=== PATIENT | female | born 1925 | race Caucasian/White ===

== ENCOUNTER 2016-09-25 06:16 | Day surgery (SDC) | payer MEDICARE, BC ==
[~2016-09-25 06:16] MED LIST: Midazolam 1 MG/ML 2 ML SDV ONE; fentaNYL 100 MCG/2 ML SDV ONE
[2016-09-25] MEDS ORDERED: Sodium Chloride 0.9% 10 ML Syringe FLUSH PRN (06:33)
[2016-09-25] MEDS ORDERED: Dextrose 5%-0.45% NaCl 1,000 ML IV SCH (06:45)
[2016-09-25] MEDS ORDERED: fentaNYL 100 MCG/2 ML SDV IV ONE ×2 (07:02→15:46)
[2016-09-25] MEDS ORDERED: Midazolam 1 MG/ML 2 ML SDV IV ONE ×3 (07:04→15:46)
--- NOTE | 2016-09-25 09:34 | OR ---
DATE: 09/25/2016 PROCEDURE: Esophagogastroduodenoscopy and multiple pinch biopsies. INSTRUMENT USED: GIF-Q180 Olympus video panendoscope. PREMEDICATIONS: No oral topical anesthesia used. Fentanyl 50 mcg intravenous, Versed 1 mg intravenous. Nasal 2 L O2 cannula. The procedure was done under pulse oximetry, BP recording, and tracer clerk. INDICATION: The patient with progressive weight loss, unexplained, and not responsive to medical measures. Esophagogastroduodenoscopy is performed for detection of any active erosive lesions, malignancy also under consideration, H. pylori status to be determined, endoscopic hemostasis therapy if needed. DESCRIPTION OF PROCEDURE: The scope was passed with ease. Adequate visualization of the esophagus was made from proximal to distal areas. No upper esophageal lesions identified. No distal esophageal stricture. No uphill or downhill esophageal varices. No Greta-Frazier tear. Brillion columnar epithelium was noted at around 30 cm distal to the oral verge, 4 quadrant biopsies were taken from the area and sent for any histopathologic evidence of intestinal metaplasia. Grade D erosive changes were noted by Clarion criteria. Sliding hiatal hernia was noted. No esophageal polyp or tumor mass identified. No proximal gastric varices noted. Gastric fundus examination with retroflexion showed no malignant lesions. No gastric ulcer, malignant mass, or vascular ectasia identified. Considerable deformity of the post-bulbar area was noted, couple of diverticula were noted in the duodenum, one near the prominent ampulla of Vater, multiple pinch biopsies were obtained from the colon and sent for histopathology. Multiple duodenal ulcers were noted, photographs were taken of the ulcer as well as the diverticulum, multiple pinch biopsies were obtained from the ulcers noted in the second part of the duodenum and sent for histopathology. Visualized areas of the second part of the duodenum was unremarkable. Multiple pinch biopsies were taken from the gastric antrum and proximal body and sent for PyloriTek test for H. pylori and histopathology. No bleeding was noted from any of the visualized areas at the completion of examination. IMPRESSION: 1. Columnar lined distal esophagus. 2. Sliding hiatal hernia. 3. Grade D gastroesophageal reflux disease. 4. Duodenal ulcers. 5. Duodenal diverticula. The patient tolerated the procedure well. [facility] /[id number]
[2016-09-25 09:47] VITALS: BP 101/57
== END 2016-09-25 09:37 | disposition home or self-care (01) ==
LOC: DL.ENDO 06:16
PROVIDERS: ATTEND Internal Medicine Gastroenterology
DX: K29.80 Duodenitis without bleeding (principal); B33.20 Viral carditis, unspecified; I10 Essential (primary) hypertension; E78.5 Hyperlipidemia, unspecified; F41.9 Anxiety disorder, unspecified; K57.30 Diverticulosis of large intestine without perforation or abscess without bleeding; Z86.010 Personal history of colon polyps
CPT/HCPCS: 43239; 87077; J2250; J3010; J7042; 88305

== ENCOUNTER 2017-08-26 14:26 | Inpatient (IN) | payer MEDICARE, BC ==
--- NOTE | 2017-08-26 17:22 | EDM.PDOC ---
ED HPI GENERAL MEDICAL PROBLEM - General Chief Complaint: Respiratory Problem Stated Complaint: SENT BY DR ARMENDARIZ Time Seen by Provider: 08/26/17 16:45 Source of Information: Reports: Patient, RN History Limitations: Reports: No Limitations - History of Present Illness INITIAL COMMENTS - FREE TEXT/NARRATIVE: Karen is an 89yo F who presents today due to a cough. She reports that she has been "sick with a bad cold" for the last couple weeks. The staff at the long-term relate that she has been on antibiotics for the last two days and seems to have gotten worse. Nursing staff here relate that the patients oxygen level was noted to be 86% in the waiting room and therefore was placed on oxygen. Patient denies shortness of breath, fever, chest pain, or cough. Patient relates that she normally does not normally wear oxygen at home. Onset: Gradual (For the last couple weeks ) Location: Reports: Chest (Cough ) Improves with: Reports: None Worsens with: Reports: None Associated Symptoms: Reports: No Other Symptoms - Related Data Allergies Allergy/AdvReac Type Severity Reaction Status Date / Time No Known Allergies Allergy Verified 08/26/17 16:52 Home Meds: Home Meds Acetaminophen [Tylenol Extra Strength] 500 mg PO Q6HR PRN 02/23/15 [History] Multivitamin [Multivitamins] 1 tab PO DAILY 02/23/15 [History] Potassium Chloride [Klor-Con 10] 10 meq PO DAILY 02/23/15 [History] Terazosin [Hytrin] 5 mg PO DAILY 02/23/15 [History] Azithromycin [IJD: Azithromycin] 250 mg PO DAILY 08/26/17 [History] Benzonatate [Tessalon Perle] 100 mg PO TID PRN 08/26/17 [History] Codeine/guaiFENesin [Robitussin AC] 5 ml PO Q4HR PRN 08/26/17 [History] Ferrous Fumarate 324 mg PO DAILY 08/26/17 [History] Folic Acid 1 mg PO DAILY 08/26/17 [History] Furosemide 20 mg PO DAILY 08/26/17 [History] Omeprazole 20 mg PO DAILY 08/26/17 [History] Past Medical History HEENT History: Reports: Impaired Vision Cardiovascular History: Reports: High Cholesterol, Hypertension Other Cardiovascular History: HYPERCHOLESTEROLEMIA; HYPERTRIGLYCERIDEMIA Respiratory History: Reports: None Other Respiratory History: UPPER RESPIRATORY INFECTION Gastrointestinal History: Reports: Diverticulosis Other Gastrointestinal History: HX OF COLON CANCER Genitourinary History: Reports: None 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 Musculoskeletal History: Reports: Arthritis, Back Pain, Chronic, Other (See Below) Other Musculoskeletal History: degenerative joint disease Neurological History: Reports: None Other Neuro History: DJD Psychiatric History: Reports: None Endocrine/Metabolic History: Reports: None Other Hematologic History: HYPOKALEMIA Immunologic History: Reports: None Oncologic (Cancer) History: Reports: Colon Dermatologic History: Reports: None - Infectious Disease History Infectious Disease History: Reports: Measles - Past Surgical History HEENT Surgical History: Reports: Cataract Surgery GI Surgical History: Reports: Cholecystectomy, Colonoscopy, Hernia Repair/Other Social & Family History - Tobacco Use Smoking Status *Q: Former Smoker Years of Tobacco use: 15 Used Tobacco, but Quit: Yes Month/Year Tobacco Last Used: unknown - Caffeine Use Caffeine Use: Reports: Coffee - Recreational Drug Use Recreational Drug Use: No ED ROS GENERAL - Review of Systems Review Of Systems: ROS reveals no pertinent complaints other than HPI. ED EXAM, GENERAL - Physical Exam Exam: See Below Exam Limited By: No Limitations General Appearance: Alert, WD/WN, No Apparent Distress Eye Exam: Bilateral Eye: EOMI, PERRL Ears: Normal External Exam, Normal Canal, Hearing Grossly Normal, Normal TMs Ear Exam: Bilateral Ear: Auricle Normal, Canal Normal, TM normal Nose: Normal Inspection, Normal Mucosa, No Blood Throat/Mouth: Normal Inspection, Normal Lips, Normal Teeth, Normal Gums, Normal Oropharynx, Normal Voice, No Airway Compromise Head: Atraumatic, Normocephalic Neck: Normal Inspection, Supple, Non-Tender, Full Range of Motion Respiratory/Chest: No Respiratory Distress, No Accessory Muscle Use, Chest Non- Tender, Crackles (Patient has coarse crackles throughout. Inspiratory and expiratory wheezes noted. ) Cardiovascular: Normal Peripheral Pulses, Regular Rate, Rhythm, No Edema, No Gallop, No JVD, No Murmur, No Rub GI/Abdominal: Normal Bowel Sounds, Soft, Non-Tender, No Organomegaly, No Distention, No Abnormal Bruit, No Mass (Female) Exam: Deferred Rectal (Female) Exam: Deferred Back Exam: Normal Inspection, Full Range of Motion, NT Extremities: Normal Inspection, Normal Range of Motion, Non-Tender, Normal Capillary Refill, No Pedal Edema Neurological: Alert, Oriented, CN II-XII Intact, Normal Cognition, Normal Gait, Normal Reflexes, No Motor/Sensory Deficits Psychiatric: Normal Affect, Normal Mood Skin Exam: Warm, Dry, Intact, Normal Color, No Rash Lymphatic: No Adenopathy Course - Vital Signs Last Recorded V/S: Last Vital Signs Temp 99.1 F 08/26/17 18:54 Pulse 75 08/26/17 18:54 Resp 32 H 08/26/17 18:54 BP 116/54 L 08/26/17 18:59 Pulse Ox 92 L 08/26/17 18:58 - Orders/Labs/Meds Orders: Active Orders 24 hr Category Date Time Status RT Aerosol Therapy [RC] ASDIRECTED Care 08/26/17 17:25 Active Chest 2V [CR] Urgent Exams 08/26/17 17:17 Taken Chest w Cont [CT] Urgent Exams 08/26/17 19:18 Ordered CULTURE BLOOD [BC] Stat Lab 08/26/17 17:28 Received CULTURE BLOOD [BC] Stat Lab 08/26/17 17:34 Received INFLUENZA A+B AG SCREEN [RM] Stat Lab 08/26/17 19:21 Received Blood Culture x2 Reflex Set [OM.PC] Stat Oth 08/26/17 17:17 Ordered Labs: Laboratory Tests 08/26/17 08/26/17 08/26/17 Range/Units 17:28 17:28 17:28 WBC 7.4 (5.0-10.0) 10^3/uL RBC 3.95 L (4.2-5.4) 10^6/uL Hgb 11.9 L (12.0-16.0) g/dL Hct 36.1 L (37.0-47.0) % MCV 91.4 (80-100) fL MCH 30.1 (27.0-34.0) pg MCHC 33.0 (33.0-35.0) g/dL Plt Count 273 (150-450) 10^3/uL Neut % (Auto) 74.0 (42.2-75.2) % Lymph % (Auto) 16.9 L (20.5-50.1) % [place] % (Auto) 8.5 H (2-8) % Eos % (Auto) 0.5 L (1.0-3.0) % Baso % (Auto) 0.1 (0.0-1.0) % Sodium 134 L (135-145) mmol/L Potassium 3.3 L (3.6-5.0) mmol/L Chloride 97 L (101-111) mmol/L Carbon Dioxide 26.0 (21.0-31.0) mmol/L Anion Gap 14.3 BUN 17 (7-18) mg/dL Creatinine 1.0 (0.6-1.3) mg/dL Est Cr Clr Drug Dosing 35.70 mL/min Estimated GFR (MDRD) 52 BUN/Creatinine Ratio 17.00 Glucose 92 (74-105) mg/dL Lactic Acid (0.5-2.2) mmol/L Calcium 8.7 (8.4-10.2) mg/dl Total Bilirubin 0.7 (0.2-1.0) mg/dL AST 23 (10-42) IU/L ALT 16 (10-60) IU/L Alkaline Phosphatase 91 (42-121) IU/L B-Natriuretic Peptide 120 H (0-100) pg/ml Total Protein 6.6 L (6.7-8.2) g/dl Albumin 3.4 (3.2-5.5) g/dl Globulin 3.2 Albumin/Globulin Ratio 1.06 Urine Color (YELLOW) Urine Appearance (CLEAR) Urine pH (5.0-9.0) Ur Specific [place] (1.005-1.030) Urine Protein (NEGATIVE) Urine Glucose (UA) (NEGATIVE) Urine Ketones (NEGATIVE) Urine Occult Blood (NEGATIVE) Urine Nitrite (NEGATIVE) Urine Bilirubin (NEGATIVE) Urine Urobilinogen (0.2-1.0) mg/dL Ur Leukocyte Esterase (NEGATIVE) Urine RBC /HPF Urine WBC (0-5/HPF) /HPF Ur Epithelial Cells /HPF Calcium Oxalate Crystal /HPF Amorphous Sediment (0/HPF) /HPF Urine Bacteria (0-FEW/HPF) /HPF Hyaline Casts /LPF Fine Granular Casts (0/LPF) /LPF Urine Mucus /LPF Urine Other 08/26/17 08/26/17 Range/Units 17:34 18:31 WBC (5.0-10.0) 10^3/uL RBC (4.2-5.4) 10^6/uL Hgb (12.0-16.0) g/dL Hct (37.0-47.0) % MCV (80-100) fL MCH (27.0-34.0) pg MCHC (33.0-35.0) g/dL Plt Count (150-450) 10^3/uL Neut % (Auto) (42.2-75.2) % Lymph % (Auto) (20.5-50.1) % [place] % (Auto) (2-8) % Eos % (Auto) (1.0-3.0) % Baso % (Auto) (0.0-1.0) % Sodium (135-145) mmol/L Potassium (3.6-5.0) mmol/L Chloride (101-111) mmol/L Carbon Dioxide (21.0-31.0) mmol/L Anion Gap BUN (7-18) mg/dL Creatinine (0.6-1.3) mg/dL Est Cr Clr Drug Dosing mL/min Estimated GFR (MDRD) BUN/Creatinine Ratio Glucose (74-105) mg/dL Lactic Acid 0.7 (0.5-2.2) mmol/L Calcium (8.4-10.2) mg/dl Total Bilirubin (0.2-1.0) mg/dL AST (10-42) IU/L ALT (10-60) IU/L Alkaline Phosphatase (42-121) IU/L B-Natriuretic Peptide (0-100) pg/ml Total Protein (6.7-8.2) g/dl Albumin (3.2-5.5) g/dl Globulin Albumin/Globulin Ratio Urine Color Yellow (YELLOW) Urine Appearance Cloudy (CLEAR) Urine pH 5.5 (5.0-9.0) Ur Specific [place] 1.015 (1.005-1.030) Urine Protein 30 H (NEGATIVE) Urine Glucose (UA) Negative (NEGATIVE) Urine Ketones 15 H (NEGATIVE) Urine Occult Blood Negative (NEGATIVE) Urine Nitrite Negative (NEGATIVE) Urine Bilirubin Small H (NEGATIVE) Urine Urobilinogen 0.2 (0.2-1.0) mg/dL Ur Leukocyte Esterase Negative (NEGATIVE) Urine RBC 0-5 /HPF Urine WBC 0-5 (0-5/HPF) /HPF Ur Epithelial Cells Rare /HPF Calcium Oxalate Crystal Many H /HPF Amorphous Sediment Rare (0/HPF) /HPF Urine Bacteria Few (0-FEW/HPF) /HPF Hyaline Casts Moderate H /LPF Fine Granular Casts Few H (0/LPF) /LPF Urine Mucus Rare /LPF Urine Other Meds: Medications Discontinued Medications Generic Name Dose Route Start Last Admin Trade Name Freq PRN Reason Stop Dose Admin Albuterol/Ipratropium 3 ml 08/26/17 17:25 08/26/17 17:42 Duoneb 3.0-0.5 Mg/3 Ml NEB 08/26/17 17:26 3 ml ONETIME ONE Administration Iopamidol 100 ml 08/26/17 19:18 Isovue-370 (76%) IVPUSH 08/26/17 19:19 ONETIME ONE Departure - Departure Time of Disposition: 18:39 Disposition: Admitted As Inpatient 68 Condition: Good Clinical Impression: Pneumonia - Discharge Information Care Plan Goals: Discussed case with Dr Monahan due to patient's low oxygen sats. Recommended CT study P/E study and will come in see patient in the ED.
[2017-08-26] MEDS ORDERED: Albuterol/Ipratropium 3.0-0.5 MG/3 ML Neb Soln NEB ONE (17:25)
[2017-08-26] MEDS ORDERED: Iopamidol 755 Mg/ML 100 ML Bottle IVPUSH ONE (19:18)
[2017-08-26] MEDS ORDERED: Ondansetron 4 MG/2 ML SDV IVPUSH PRN (19:29)
[2017-08-26] MEDS ORDERED: Albuterol/Ipratropium 3.0-0.5 MG/3 ML Neb Soln NEB PRN (19:29)
[2017-08-26] MEDS ORDERED: Acetaminophen 325 MG Tab PO PRN (19:29)
--- NOTE | 2017-08-26 19:29 | PCM.HP ---
H&P History of Present Illness - General Date of Service: 08/26/17 Source of Information: Patient - History of Present Illness Initial Comments - Free Text/Narative: The patient resides at a [facility]dc. She presented to the emergency room because of hypoxia and cough. She has been coughing for the past one week. The cough is said to be productive and over time has worsened. She has associated fever mostly low grade. She indicated that her appetite has not been great. Patient was started on oral azithromycin but failed to improve. She was noted to be hypoxic with SATURATION DOWN IN THE 80S hence WAS BROUGHT TO THE EMERGENCY ROOM. No nausea no vomiting. No chest pain. No headache and no bladder physician. No dysuria no frequency or micturition. - Related Data Allergies/Adverse Reactions: Allergies Allergy/AdvReac Type Severity Reaction Status Date / Time No Known Allergies Allergy Verified 08/26/17 16:52 Home Medications: Home Meds Acetaminophen [Tylenol Extra Strength] 500 mg PO Q6HR PRN 02/23/15 [History] Multivitamin [Multivitamins] 1 tab PO DAILY 02/23/15 [History] Potassium Chloride [Klor-Con 10] 10 meq PO DAILY 02/23/15 [History] Terazosin [Hytrin] 5 mg PO DAILY 02/23/15 [History] Azithromycin [IJD: Azithromycin] 250 mg PO DAILY 08/26/17 [History] Benzonatate [Tessalon Perle] 100 mg PO TID PRN 08/26/17 [History] Codeine/guaiFENesin [Robitussin AC] 5 ml PO Q4HR PRN 08/26/17 [History] Ferrous Fumarate 324 mg PO DAILY 08/26/17 [History] Folic Acid 1 mg PO DAILY 08/26/17 [History] Furosemide 20 mg PO DAILY 08/26/17 [History] Omeprazole 20 mg PO DAILY 08/26/17 [History] Past Medical History HEENT History: Reports: Impaired Vision Cardiovascular History: Reports: High Cholesterol, Hypertension Other Cardiovascular History: HYPERCHOLESTEROLEMIA; HYPERTRIGLYCERIDEMIA Respiratory History: Reports: None Other Respiratory History: UPPER RESPIRATORY INFECTION Gastrointestinal History: Reports: Diverticulosis Other Gastrointestinal History: HX OF COLON CANCER Genitourinary History: Reports: None 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 Musculoskeletal History: Reports: Arthritis, Back Pain, Chronic, Other (See Below) Other Musculoskeletal History: degenerative joint disease Neurological History: Reports: None Other Neuro History: DJD Psychiatric History: Reports: None Endocrine/Metabolic History: Reports: None Other Hematologic History: HYPOKALEMIA Immunologic History: Reports: None Oncologic (Cancer) History: Reports: Colon Dermatologic History: Reports: None - Infectious Disease History Infectious Disease History: Reports: Measles - Past Surgical History HEENT Surgical History: Reports: Cataract Surgery GI Surgical History: Reports: Cholecystectomy, Colonoscopy, Hernia Repair/Other Social & Family History - Family History Family Medical History: Noncontributory - Tobacco Use Smoking Status *Q: Former Smoker Years of Tobacco use: 15 Used Tobacco, but Quit: Yes Month/Year Tobacco Last Used: unknown - Caffeine Use Caffeine Use: Reports: Coffee - Recreational Drug Use Recreational Drug Use: No H&P Review of Systems - Review of Systems: Review Of Systems: See Below Pulmonary: Reports: No Symptoms Cardiovascular: Reports: No Symptoms Gastrointestinal: Reports: No Symptoms Genitourinary: Reports: No Symptoms Musculoskeletal: Reports: No Symptoms Skin: Reports: No Symptoms Exam - Exam Exam: See Below - Vital Signs Vital Signs: Last Vital Signs Temp 37.3 C 08/26/17 18:54 Pulse 75 08/26/17 18:54 Resp 32 H 08/26/17 18:54 BP 116/54 L 08/26/17 18:59 Pulse Ox 92 L 08/26/17 18:58 Weight: 61.235 kg - Exam Quality Assessment: Supplemental Oxygen General: Alert, Oriented Neck: Supple Lungs: Decreased Breath Sounds, Rales, Wheezing Cardiovascular: Regular Rate GI/Abdominal Exam: Normal Bowel Sounds, Soft Extremities: Normal Inspection Skin: Warm Neuro Extensive - Mental Status: Oriented x3 Neuro Extensive - Motor, Sensory, Reflexes: Normal Gait Psychiatric: Alert, Normal Affect - Patient Data Lab Results Last 24 hrs: Laboratory Results - last 24 hr 08/26/17 08/26/17 08/26/17 Range/Units 17:28 17:28 17:28 WBC 7.4 (5.0-10.0) 10^3/uL RBC 3.95 L (4.2-5.4) 10^6/uL Hgb 11.9 L (12.0-16.0) g/dL Hct 36.1 L (37.0-47.0) % MCV 91.4 (80-100) fL MCH 30.1 (27.0-34.0) pg MCHC 33.0 (33.0-35.0) g/dL Plt Count 273 (150-450) 10^3/uL Neut % (Auto) 74.0 (42.2-75.2) % Lymph % (Auto) 16.9 L (20.5-50.1) % Andrew % (Auto) 8.5 H (2-8) % Eos % (Auto) 0.5 L (1.0-3.0) % Baso % (Auto) 0.1 (0.0-1.0) % Sodium 134 L (135-145) mmol/L Potassium 3.3 L (3.6-5.0) mmol/L Chloride 97 L (101-111) mmol/L Carbon Dioxide 26.0 (21.0-31.0) mmol/L Anion Gap 14.3 BUN 17 (7-18) mg/dL Creatinine 1.0 (0.6-1.3) mg/dL Est Cr Clr Drug Dosing 35.70 mL/min Estimated GFR (MDRD) 52 BUN/Creatinine Ratio 17.00 Glucose 92 (74-105) mg/dL Lactic Acid (0.5-2.2) mmol/L Calcium 8.7 (8.4-10.2) mg/dl Total Bilirubin 0.7 (0.2-1.0) mg/dL AST 23 (10-42) IU/L ALT 16 (10-60) IU/L Alkaline Phosphatase 91 (42-121) IU/L B-Natriuretic Peptide 120 H (0-100) pg/ml Total Protein 6.6 L (6.7-8.2) g/dl Albumin 3.4 (3.2-5.5) g/dl Globulin 3.2 Albumin/Globulin Ratio 1.06 Urine Color (YELLOW) Urine Appearance (CLEAR) Urine pH (5.0-9.0) Ur Specific [place] (1.005-1.030) Urine Protein (NEGATIVE) Urine Glucose (UA) (NEGATIVE) Urine Ketones (NEGATIVE) Urine Occult Blood (NEGATIVE) Urine Nitrite (NEGATIVE) Urine Bilirubin (NEGATIVE) Urine Urobilinogen (0.2-1.0) mg/dL Ur Leukocyte Esterase (NEGATIVE) Urine RBC /HPF Urine WBC (0-5/HPF) /HPF Ur Epithelial Cells /HPF Calcium Oxalate Crystal /HPF Amorphous Sediment (0/HPF) /HPF Urine Bacteria (0-FEW/HPF) /HPF Hyaline Casts /LPF Fine Granular Casts (0/LPF) /LPF Urine Mucus /LPF Urine Other 08/26/17 08/26/17 Range/Units 17:34 18:31 WBC (5.0-10.0) 10^3/uL RBC (4.2-5.4) 10^6/uL Hgb (12.0-16.0) g/dL Hct (37.0-47.0) % MCV (80-100) fL MCH (27.0-34.0) pg MCHC (33.0-35.0) g/dL Plt Count (150-450) 10^3/uL Neut % (Auto) (42.2-75.2) % Lymph % (Auto) (20.5-50.1) % Andrew % (Auto) (2-8) % Eos % (Auto) (1.0-3.0) % Baso % (Auto) (0.0-1.0) % Sodium (135-145) mmol/L Potassium (3.6-5.0) mmol/L Chloride (101-111) mmol/L Carbon Dioxide (21.0-31.0) mmol/L Anion Gap BUN (7-18) mg/dL Creatinine (0.6-1.3) mg/dL Est Cr Clr Drug Dosing mL/min Estimated GFR (MDRD) BUN/Creatinine Ratio Glucose (74-105) mg/dL Lactic Acid 0.7 (0.5-2.2) mmol/L Calcium (8.4-10.2) mg/dl Total Bilirubin (0.2-1.0) mg/dL AST (10-42) IU/L ALT (10-60) IU/L Alkaline Phosphatase (42-121) IU/L B-Natriuretic Peptide (0-100) pg/ml Total Protein (6.7-8.2) g/dl Albumin (3.2-5.5) g/dl Globulin Albumin/Globulin Ratio Urine Color Yellow (YELLOW) Urine Appearance Cloudy (CLEAR) Urine pH 5.5 (5.0-9.0) Ur Specific [place] 1.015 (1.005-1.030) Urine Protein 30 H (NEGATIVE) Urine Glucose (UA) Negative (NEGATIVE) Urine Ketones 15 H (NEGATIVE) Urine Occult Blood Negative (NEGATIVE) Urine Nitrite Negative (NEGATIVE) Urine Bilirubin Small H (NEGATIVE) Urine Urobilinogen 0.2 (0.2-1.0) mg/dL Ur Leukocyte Esterase Negative (NEGATIVE) Urine RBC 0-5 /HPF Urine WBC 0-5 (0-5/HPF) /HPF Ur Epithelial Cells Rare /HPF Calcium Oxalate Crystal Many H /HPF Amorphous Sediment Rare (0/HPF) /HPF Urine Bacteria Few (0-FEW/HPF) /HPF Hyaline Casts Moderate H /LPF Fine Granular Casts Few H (0/LPF) /LPF Urine Mucus Rare /LPF Urine Other Result Diagrams: 08/26/17 17:28 08/26/17 17:28 *Q Meaningful Use (ADM) - VTE *Q VTE Criteria *Q: - Stroke *Q Stroke Criteria *Q: - AMI *Q AMI Criteria *Q: Problem List Initiated/Reviewed/Updated: Yes Orders Last 24hrs: Active Orders 24 hr Category Date Time Status RT Aerosol Therapy [RC] ASDIRECTED Care 08/26/17 17:25 Active Chest 2V [CR] Urgent Exams 08/26/17 17:17 Taken Chest w Cont [CT] Urgent Exams 08/26/17 19:18 Ordered CULTURE BLOOD [BC] Stat Lab 08/26/17 17:28 Received CULTURE BLOOD [BC] Stat Lab 08/26/17 17:34 Received INFLUENZA A+B AG SCREEN [RM] Stat Lab 08/26/17 19:23 Ordered Blood Culture x2 Reflex Set [OM.PC] Stat Oth 08/26/17 17:17 Ordered Assessment/Plan Comment:: #. Probable healthcare associated pneumonia The patient has been coughing for the past one week. Was treated with oral azithromycin without improvement Also has intermittent fever and is not hypoxic #. Acute hypoxemic respiratory failure Patient's oxygen saturation went down into the 80s Likely due to pneumonia. She is also bronchospastic #. Acute bronchitis Does have significant wheezing. Has a prior history of tobacco use but has not been diagnosed with COPD #. History of colon cancer Treated #. Hypertension Blood pressure has been intermittently elevated #. History of diverticulosis Plan: Admit patient to medical floor Empiric antibiotics with intravenous levofloxacin Intravenous Solu Medrol Send sputum for Gram stain and culture next obtain blood cultures Supplemental oxygen Comments nebulization with DuoNeb Chart reviewed. Discussed with the emergency room Nurse practitioner
[2017-08-26] MEDS ORDERED: Albuterol 0.083% 2.5 MG/3 ML Neb Soln NEB SCH (19:30)
[2017-08-26] MEDS ORDERED: Sodium Chloride 0.9% 1,000 ML IV SCH (19:30)
[2017-08-26] MEDS ORDERED: Levofloxacin/Dextrose 5%-Water 750 MG in Premix Bag 1 BAG IV SCH (20:00)
[2017-08-26] MEDS: Hydrocortisone Sodium Succinate 100 MG/2 ML SDV IVPUSH SCH (22:02)
[2017-08-26] MEDS: Heparin Sodium 5,000 Units/ML Vial SUBCUT SCH (22:07)
[2017-08-27] MEDS: Albuterol 0.083% 2.5 MG/3 ML Neb Soln NEB SCH ×5 (01:29→18:18)
[2017-08-27] MEDS: Heparin Sodium 5,000 Units/ML Vial SUBCUT SCH ×2 (09:55→21:51)
[2017-08-27] MEDS: Hydrocortisone Sodium Succinate 100 MG/2 ML SDV IVPUSH SCH (10:44)
[2017-08-27] MEDS ORDERED: Benzonatate 100 MG Cap PO PRN (11:17)
--- NOTE | 2017-08-27 11:17 | PCM.PN ---
- General Info Date of Service: 08/27/17 Subjective Update: Patient was admitted with suspected pneumonia. She has been coughing for about a week She was noted to be hypoxic in the emergency room with oxygen saturation down in the 80s She was also having low-grade fever. White cell count was normal. Today she also has no new complaints. No fever overnight Still coughing - Review of Systems General: Reports: Weakness Pulmonary: Reports: Cough - Patient Data Vitals - Most Recent: Last Vital Signs Temp 37.2 C 08/27/17 00:00 Pulse 77 08/27/17 09:41 Resp 22 H 08/27/17 00:00 BP 119/70 08/27/17 00:00 Pulse Ox 91 L 08/27/17 01:33 Weight - Most Recent: 57.516 kg Lab Results Last 24 Hours: Laboratory Results - last 24 hr 08/26/17 08/26/17 08/26/17 Range/Units 17:28 17:28 17:28 WBC 7.4 (5.0-10.0) 10^3/uL RBC 3.95 L (4.2-5.4) 10^6/uL Hgb 11.9 L (12.0-16.0) g/dL Hct 36.1 L (37.0-47.0) % MCV 91.4 (80-100) fL MCH 30.1 (27.0-34.0) pg MCHC 33.0 (33.0-35.0) g/dL Plt Count 273 (150-450) 10^3/uL Neut % (Auto) 74.0 (42.2-75.2) % Lymph % (Auto) 16.9 L (20.5-50.1) % [place] % (Auto) 8.5 H (2-8) % Eos % (Auto) 0.5 L (1.0-3.0) % Baso % (Auto) 0.1 (0.0-1.0) % Sodium 134 L (135-145) mmol/L Potassium 3.3 L (3.6-5.0) mmol/L Chloride 97 L (101-111) mmol/L Carbon Dioxide 26.0 (21.0-31.0) mmol/L Anion Gap 14.3 BUN 17 (7-18) mg/dL Creatinine 1.0 (0.6-1.3) mg/dL Est Cr Clr Drug Dosing 35.70 mL/min Estimated GFR (MDRD) 52 BUN/Creatinine Ratio 17.00 Glucose 92 (74-105) mg/dL Lactic Acid (0.5-2.2) mmol/L Calcium 8.7 (8.4-10.2) mg/dl Total Bilirubin 0.7 (0.2-1.0) mg/dL AST 23 (10-42) IU/L ALT 16 (10-60) IU/L Alkaline Phosphatase 91 (42-121) IU/L B-Natriuretic Peptide 120 H (0-100) pg/ml Total Protein 6.6 L (6.7-8.2) g/dl Albumin 3.4 (3.2-5.5) g/dl Globulin 3.2 Albumin/Globulin Ratio 1.06 Urine Color (YELLOW) Urine Appearance (CLEAR) Urine pH (5.0-9.0) Ur Specific [place] (1.005-1.030) Urine Protein (NEGATIVE) Urine Glucose (UA) (NEGATIVE) Urine Ketones (NEGATIVE) Urine Occult Blood (NEGATIVE) Urine Nitrite (NEGATIVE) Urine Bilirubin (NEGATIVE) Urine Urobilinogen (0.2-1.0) mg/dL Ur Leukocyte Esterase (NEGATIVE) Urine RBC /HPF Urine WBC (0-5/HPF) /HPF Ur Epithelial Cells /HPF Calcium Oxalate Crystal /HPF Amorphous Sediment (0/HPF) /HPF Urine Bacteria (0-FEW/HPF) /HPF Hyaline Casts /LPF Fine Granular Casts (0/LPF) /LPF Urine Mucus /LPF Urine Other 08/26/17 08/26/17 Range/Units 17:34 18:31 WBC (5.0-10.0) 10^3/uL RBC (4.2-5.4) 10^6/uL Hgb (12.0-16.0) g/dL Hct (37.0-47.0) % MCV (80-100) fL MCH (27.0-34.0) pg MCHC (33.0-35.0) g/dL Plt Count (150-450) 10^3/uL Neut % (Auto) (42.2-75.2) % Lymph % (Auto) (20.5-50.1) % [place] % (Auto) (2-8) % Eos % (Auto) (1.0-3.0) % Baso % (Auto) (0.0-1.0) % Sodium (135-145) mmol/L Potassium (3.6-5.0) mmol/L Chloride (101-111) mmol/L Carbon Dioxide (21.0-31.0) mmol/L Anion Gap BUN (7-18) mg/dL Creatinine (0.6-1.3) mg/dL Est Cr Clr Drug Dosing mL/min Estimated GFR (MDRD) BUN/Creatinine Ratio Glucose (74-105) mg/dL Lactic Acid 0.7 (0.5-2.2) mmol/L Calcium (8.4-10.2) mg/dl Total Bilirubin (0.2-1.0) mg/dL AST (10-42) IU/L ALT (10-60) IU/L Alkaline Phosphatase (42-121) IU/L B-Natriuretic Peptide (0-100) pg/ml Total Protein (6.7-8.2) g/dl Albumin (3.2-5.5) g/dl Globulin Albumin/Globulin Ratio Urine Color Yellow (YELLOW) Urine Appearance Cloudy (CLEAR) Urine pH 5.5 (5.0-9.0) Ur Specific [place] 1.015 (1.005-1.030) Urine Protein 30 H (NEGATIVE) Urine Glucose (UA) Negative (NEGATIVE) Urine Ketones 15 H (NEGATIVE) Urine Occult Blood Negative (NEGATIVE) Urine Nitrite Negative (NEGATIVE) Urine Bilirubin Small H (NEGATIVE) Urine Urobilinogen 0.2 (0.2-1.0) mg/dL Ur Leukocyte Esterase Negative (NEGATIVE) Urine RBC 0-5 /HPF Urine WBC 0-5 (0-5/HPF) /HPF Ur Epithelial Cells Rare /HPF Calcium Oxalate Crystal Many H /HPF Amorphous Sediment Rare (0/HPF) /HPF Urine Bacteria Few (0-FEW/HPF) /HPF Hyaline Casts Moderate H /LPF Fine Granular Casts Few H (0/LPF) /LPF Urine Mucus Rare /LPF Urine Other Jair Results Last 24 Hours: Microbiology 08/26/17 19:21 Influenza Type A Antigen Screen - Final Nasal, Left NEGATIVE INFLUENZA A VIRUS AG Influenza Type B Antigen Screen - Final NEGATIVE INFLUENZA B VIRUS AG Med Orders - Current: Current Medications Acetaminophen (Tylenol) 650 mg PO Q4H PRN PRN Reason: Pain (Mild 1-3)/fever Albuterol (Proventil Neb Soln) 2.5 mg NEB Q6HRRT [facility] Last Admin: 08/27/17 09:40 Dose: 2.5 mg Albuterol/Ipratropium (Duoneb 3.0-0.5 Mg/3 Ml) 3 ml NEB Q4H PRN PRN Reason: shortness of breath/wheezing Last Admin: 08/26/17 22:03 Dose: 3 ml Heparin Sodium (Porcine) (Heparin Sodium) 5,000 units SUBCUT Q12HR [facility] Last Admin: 08/27/17 09:55 Dose: 5,000 units Hydrocortisone Sodium Succinate (Solu-Cortef) 20 mg IVPUSH Q8H [facility] Last Admin: 08/27/17 10:44 Dose: Not Given Levofloxacin/Dextrose 750 mg/ (Premix) 150 mls @ 100 mls/hr IV Q24H [facility] Last Admin: 08/26/17 21:55 Dose: 100 mls/hr Sodium Chloride (Normal Saline) 1,000 mls @ 75 mls/hr IV ASDIRECTED [facility] Last Admin: 08/26/17 21:54 Dose: 75 mls/hr Ondansetron HCl (Zofran) 4 mg IVPUSH Q6H PRN PRN Reason: Nausea/Vomiting Discontinued Medications Albuterol (Proventil Neb Soln) 2.5 mg NEB Q6HRRT [facility] Last Admin: 08/26/17 22:07 Dose: Not Given Albuterol/Ipratropium (Duoneb 3.0-0.5 Mg/3 Ml) 3 ml NEB ONETIME ONE Stop: 08/26/17 17:26 Last Admin: 08/26/17 17:42 Dose: 3 ml Iopamidol (Isovue-370 (76%)) 100 ml IVPUSH ONETIME ONE Stop: 08/26/17 19:19 Last Admin: 08/27/17 10:44 Dose: Not Given - Exam General: Alert Neck: Supple Lungs: Decreased Breath Sounds, Rhonchi GI/Abdominal Exam: Normal Bowel Sounds, Soft, Non-Tender, No Organomegaly, No Distention, No Abnormal Bruit, No Mass, Pelvis Stable Extremities: Normal Inspection, Normal Range of Motion, Non-Tender, No Pedal Edema, Normal Capillary Refill - Problem List Review Problem List Initiated/Reviewed/Updated: Yes - My Orders Last 24 Hours: My Active Orders 08/26/17 19:29 Patient Status [ADT] Routine Oxygen Therapy [RC] PRN Up ad Joana [RC] ASDIRECTED VTE/DVT Education [RC] PER UNIT ROUTINE Vital Signs [RC] 04,08,12,16,20,00 OT Evaluation and Treatment [CONS] Routine PT Evaluation and Treatment [CONS] Routine CULTURE SPUTUM + SMEAR [RM] Stat Acetaminophen [Tylenol] 650 mg PO Q4H PRN Albuterol/Ipratropium [DuoNeb 3.0-0.5 MG/3 ML] 3 ml NEB Q4H PRN Ondansetron [Zofran] 4 mg IVPUSH Q6H PRN 08/26/17 19:30 Sodium Chloride 0.9% [Normal Saline] 1,000 ml IV ASDIRECTED 08/26/17 19:33 RT Aerosol Therapy [RC] 01,07,,18 08/26/17 20:00 Hydrocortisone Sod Succinate [Solu-CORTEF] 20 mg IVPUSH Q8H Levofloxacin/Dextrose 5%-Water [Levaquin in D5W 750 MG/150 ML] 750 mg Premix Bag 1 bag IV Q24H 08/26/17 21:00 Heparin Sodium 5,000 units SUBCUT Q12HR 08/26/17 22:15 Albuterol [Proventil Neb Soln] 2.5 mg NEB Q6HRRT 08/27/17 09:40 Code Status [Resuscitation Status] Routine - Plan Plan:: #. Probable healthcare associated pneumonia The patient has been coughing for the past one week. Was treated with oral azithromycin without improvement Also has intermittent fever and is not hypoxic #. Acute hypoxemic respiratory failure Patient's oxygen saturation went down into the 80s Likely due to pneumonia. She is also bronchospastic #. Acute bronchitis Does have significant wheezing. Has a prior history of tobacco use but has not been diagnosed with COPD #. History of colon cancer Treated #. Hypertension Blood pressure has been intermittently elevated #. History of diverticulosis Plan: Discontinue intravenous fluids Encourage increased ambulation Try to wean off oxygen as tolerated Intravenous levofloxacin 750 mg every 48 hours start patient on Robitussin Start patient on Tessalon Perles
[2017-08-27] MEDS ORDERED: FERROUS FUMARATE 324 MG PO SCH (11:30)
[2017-08-27] MEDS: Codeine/guaiFENesin 100-10 MG/5 ML Syrup 5 ML Cup PO PRN (11:42)
[2017-08-27] MEDS: Potassium Chloride 10 MEQ Tab.ER PO SCH (11:46)
[2017-08-27] MEDS: methylPREDNISolone Sodium Succinate 40 MG/1 ML SDV IVPUSH SCH ×2 (11:46→18:10)
[2017-08-27] MEDS: Multivitamins,Therapeutic Tab PO SCH (11:46)
[2017-08-27] MEDS: Terazosin 5 MG Cap PO SCH (21:50)
[2017-08-28] MEDS: methylPREDNISolone Sodium Succinate 40 MG/1 ML SDV IVPUSH SCH ×4 (00:24→18:16)
[2017-08-28] MEDS: Albuterol 0.083% 2.5 MG/3 ML Neb Soln NEB SCH ×4 (00:25→18:51)
[2017-08-28] MEDS: Codeine/guaiFENesin 100-10 MG/5 ML Syrup 5 ML Cup PO PRN (01:52)
[2017-08-28] MEDS: Omeprazole 20 MG Cap.CR PO SCH (05:54)
[2017-08-28] MEDS: Heparin Sodium 5,000 Units/ML Vial SUBCUT SCH ×2 (08:24→20:28)
[2017-08-28] MEDS: Folic Acid 1 MG Tab PO SCH (08:26)
[2017-08-28] MEDS: Potassium Chloride 10 MEQ Tab.ER PO SCH (08:26)
[2017-08-28] MEDS: Furosemide 20 MG Tab PO SCH (08:26)
[2017-08-28] MEDS: Multivitamins,Therapeutic Tab PO SCH (08:26)
--- NOTE | 2017-08-28 11:02 | PCM.PN ---
- General Info Date of Service: 08/28/17 Admission Dx/Problem (Free Text): Patient is admitted with hypoxia and suspected pneumonia Today she indicates that she is still coughing. Continues to have shortness of breath No fever no chills - Review of Systems General: Reports: Weakness, Fatigue Pulmonary: Reports: No Symptoms Cardiovascular: Reports: No Symptoms Gastrointestinal: Reports: No Symptoms Genitourinary: Reports: No Symptoms Skin: Reports: No Symptoms - Patient Data Vitals - Most Recent: Last Vital Signs Temp 36.6 C 08/28/17 08:18 Pulse 85 08/28/17 08:18 Resp 20 08/28/17 08:18 BP 118/68 08/28/17 08:18 Pulse Ox 94 L 08/28/17 08:18 Weight - Most Recent: 57.516 kg I&O - Last 24 Hours: Intake & Output 08/27/17 08/28/17 08/28/17 22:59 06:59 14:59 Intake Total 640 120 Balance 640 120 Jair Results Last 24 Hours: Microbiology 08/26/17 17:34 Aerobic Blood Culture - Preliminary Blood - Venous - Lab Draw NO GROWTH AFTER 1 DAY Anaerobic Blood Culture - Preliminary NO GROWTH AFTER 1 DAY 08/26/17 17:28 Aerobic Blood Culture - Preliminary Blood - Venous NO GROWTH AFTER 1 DAY Anaerobic Blood Culture - Preliminary NO GROWTH AFTER 1 DAY Med Orders - Current: Current Medications Acetaminophen (Tylenol) 650 mg PO Q4H PRN PRN Reason: Pain (Mild 1-3)/fever Albuterol (Proventil Neb Soln) 2.5 mg NEB Q6HRRT [facility] Last Admin: 08/28/17 07:07 Dose: 2.5 mg Albuterol/Ipratropium (Duoneb 3.0-0.5 Mg/3 Ml) 3 ml NEB Q4H PRN PRN Reason: shortness of breath/wheezing Last Admin: 08/26/17 22:03 Dose: 3 ml Benzonatate (Tessalon Perles) 100 mg PO TID PRN PRN Reason: Cough Last Admin: 08/28/17 01:52 Dose: 100 mg Folic Acid (Folic Acid) 1 mg PO DAILY [facility] Last Admin: 08/28/17 08:26 Dose: 1 mg Furosemide (Lasix) 20 mg PO DAILY [facility] Last Admin: 08/28/17 08:26 Dose: 20 mg Guaifenesin/Codeine Phosphate (Robitussin Ac) 5 ml PO Q4HR PRN PRN Reason: Cough Last Admin: 08/28/17 01:52 Dose: 5 ml Heparin Sodium (Porcine) (Heparin Sodium) 5,000 units SUBCUT Q12HR [facility] Last Admin: 08/28/17 08:24 Dose: 5,000 units Levofloxacin/Dextrose 750 mg/ (Premix) 150 mls @ 100 mls/hr IV Q48H [facility] Methylprednisolone Sodium Succinate (Solu-Medrol) 20 mg IVPUSH Q6H [facility] Last Admin: 08/28/17 05:54 Dose: 20 mg Multivitamins (Thera) 1 each PO DAILY [facility] Last Admin: 08/28/17 08:26 Dose: 1 each Omeprazole (Omeprazole) 20 mg PO ACBRK [facility] Last Admin: 08/28/17 05:54 Dose: 20 mg Ondansetron HCl (Zofran) 4 mg IVPUSH Q6H PRN PRN Reason: Nausea/Vomiting Potassium Chloride (Klor-Con 10) 10 meq PO WITHBREAKFAST [facility] Last Admin: 08/28/17 08:26 Dose: 10 meq Terazosin HCl (Hytrin) 5 mg PO BEDTIME [facility] Last Admin: 08/27/17 21:50 Dose: 5 mg Discontinued Medications Albuterol (Proventil Neb Soln) 2.5 mg NEB Q6HRRT [facility] Last Admin: 08/26/17 22:07 Dose: Not Given Albuterol/Ipratropium (Duoneb 3.0-0.5 Mg/3 Ml) 3 ml NEB ONETIME ONE Stop: 08/26/17 17:26 Last Admin: 08/26/17 17:42 Dose: 3 ml Hydrocortisone Sodium Succinate (Solu-Cortef) 20 mg IVPUSH Q8H [facility] Last Admin: 08/27/17 10:44 Dose: Not Given Levofloxacin/Dextrose 750 mg/ (Premix) 150 mls @ 100 mls/hr IV Q24H [facility] Last Admin: 08/26/17 21:55 Dose: 100 mls/hr Sodium Chloride (Normal Saline) 1,000 mls @ 75 mls/hr IV ASDIRECTED [facility] Last Admin: 08/26/17 21:54 Dose: 75 mls/hr Iopamidol (Isovue-370 (76%)) 100 ml IVPUSH ONETIME ONE Stop: 08/26/17 19:19 Last Admin: 08/27/17 10:44 Dose: Not Given Non-Formulary Medication (Ferrous Fumarate [Ferrous Fumarate]) 324 mg PO DAILY [facility] Last Admin: 08/27/17 13:30 Dose: Not Given - Exam General: Alert, Oriented HEENT: Pupils Equal, Pupils Reactive, EOMI, Mucous Membr. Moist/[place] Lungs: Decreased Breath Sounds Cardiovascular: Regular Rate, Regular Rhythm GI/Abdominal Exam: Normal Bowel Sounds, Soft, Non-Tender, No Organomegaly, No Distention, No Abnormal Bruit, No Mass, Pelvis Stable Extremities: Normal Inspection, Normal Range of Motion, Non-Tender, No Pedal Edema, Normal Capillary Refill - Problem List Review Problem List Initiated/Reviewed/Updated: Yes - My Orders Last 24 Hours: My Active Orders 08/27/17 11:17 Benzonatate [Tessalon Perles] 100 mg PO TID PRN Codeine/guaiFENesin [Robitussin AC] 5 ml PO Q4HR PRN 08/27/17 11:30 Multivitamins,Therapeutic [Thera] 1 each PO DAILY Potassium Chloride [Klor-Con 10] 10 meq PO WITHBREAKFAST 08/27/17 11:51 Incentive Spirometry [RT Incentive Spirometry] [RC] ASDIRECTED 08/27/17 12:00 methylPREDNISolone Sod Succ [Solu-MEDROL] 20 mg IVPUSH Q6H 08/27/17 21:00 Terazosin [Hytrin] 5 mg PO BEDTIME 08/28/17 06:00 Omeprazole 20 mg PO ACBRK 08/28/17 09:00 Folic Acid 1 mg PO DAILY Furosemide [Lasix] 20 mg PO DAILY 08/28/17 22:00 Levofloxacin/Dextrose 5%-Water [Levaquin in D5W 750 MG/150 ML] 750 mg Premix Bag 1 bag IV Q48H - Plan Plan:: #. Probable healthcare associated pneumonia The patient has been coughing for the past one week. Was treated with oral azithromycin without improvement Started on intravenous levofloxacin #. Acute hypoxemic respiratory failure Patient's oxygen saturation went down into the 80s Likely due to pneumonia. She is also bronchospastic Continues to require supplemental oxygen #. Acute bronchitis Does have significant wheezing. Has a prior history of tobacco use but has not been diagnosed with COPD #. History of colon cancer Treated #. Hypertension Blood pressure has been intermittently elevated #. History of diverticulosis Plan: Continue bronchodilators Continue current antibiotics Encourage increased ambulation We'll try to wean off oxygen as tolerated Possible discharge in the morning. May need to go home with oxygen
[2017-08-28] MEDS ORDERED: Sodium Chloride 0.9% 10 ML Syringe FLUSH PRN (14:25)
[2017-08-28] MEDS: Terazosin 5 MG Cap PO SCH (20:28)
[2017-08-28] MEDS ORDERED: Levofloxacin/Dextrose 5%-Water 750 MG in Premix Bag 1 BAG IV SCH (22:00)
[2017-08-29] MEDS: methylPREDNISolone Sodium Succinate 40 MG/1 ML SDV IVPUSH SCH ×2 (00:34→05:41)
[2017-08-29] MEDS: Albuterol 0.083% 2.5 MG/3 ML Neb Soln NEB SCH ×4 (00:34→17:44)
[2017-08-29] MEDS: Omeprazole 20 MG Cap.CR PO SCH (05:41)
[2017-08-29] MEDS: Potassium Chloride 10 MEQ Tab.ER PO SCH ×2 (08:24→17:54)
[2017-08-29] MEDS: Multivitamins,Therapeutic Tab PO SCH (08:24)
[2017-08-29] MEDS: Folic Acid 1 MG Tab PO SCH (08:24)
[2017-08-29] MEDS: Furosemide 20 MG Tab PO SCH (08:24)
[2017-08-29] MEDS: Heparin Sodium 5,000 Units/ML Vial SUBCUT SCH ×2 (08:24→20:33)
--- NOTE | 2017-08-29 10:50 | CR ---
Clinical history: 89-year-old female with cough. Interpretation: No acute new cardiopulmonary abnormality identified in the interval since recent 26 M arch 2018 exam. Mild left ventriculomegaly and calcifications arch of the ectatic dorsal aorta. No new alveolar edema or dependent pleural effusion. Chronic mild bronchitic pattern. No new lung mass, focal lobar pneumonia or atelectasis/collapse. No pneumothorax. CONCLUSION: Chronic mild bronchitic pattern. No signs of heart failure or lobar pneumonia.
--- NOTE | 2017-08-29 13:39 | PN ---
DATE: 08/29/2017 SUBJECTIVE: Mrs. Karen Rothman is an 89-year-old female with medical history significant for hypertension, hyperlipidemia, was admitted to the hospital with complaints of cough and hypoxia, noted to have left lower lobe pneumonia and is currently on IV antibiotics. For the last 24 hours, the patient continues to have cough. The patient continues to be on oxygen. She is requiring almost 2 L of oxygen to maintain a saturation of 95%. She denies any chest pains. No abdominal pain. No nausea. No vomiting. No diarrhea. REVIEW OF SYSTEMS: Cardiovascular, respiratory, gastrointestinal, neurology, constitutional were all evaluated. PHYSICAL EXAMINATION: Vital Signs: Temperature of 97.6, pulse of 68, blood pressure of 126/62, respiratory rate of 20, saturating at 92% on 2 L of oxygen. General Appearance: The patient is well oriented to time, place, and person. Follows commands spontaneously. Cardiovascular System: S1 and S2 heard with normal intensity. Respiratory System: Crepitations at the bases, more so on the left side. No wheeze. Abdomen: Soft. Bowel sounds positive. Nontender. No rigidity. Extremities: No edema in bilateral lower extremities. MEDICATIONS: Reviewed. Continue with: 1. Tylenol 650 every 4 hours as needed for pain. 2. Albuterol 2.5 mg nebulizer every 6 hours. 3. Tessalon Perles 3 times a day as needed. 4. Robitussin as needed. 5. Folic acid 1 mg daily. 6. Lasix 20 mg daily. 7. Heparin 5000 subcutaneously q.12 hourly. 8. Levaquin 750 mg, q.48 hours. 9. Methylprednisolone 20 mg IV q.6 hourly. 10.Omeprazole 20 mg daily. 11.Zofran 4 mg every 6 hours as needed. 12.Potassium chloride 10 mEq with breakfast. 13.Terazosin 5 mg at bedtime. LABORATORY DATA: Reviewed. Sodium 142, potassium 3.1, chloride 104, bicarb 27, BUN 20, creatinine 0.9, glucose 113. ASSESSMENT: 1. Left lower lobe pneumonia. 2. Acute bronchitis. 3. Hypertension. 4. Hyperlipidemia. 5. Hypokalemia. 6. Acute hypoxic respiratory failure. 7. History of colon cancer. PLAN: 1. Pneumonia: The patient was noted to have left lower lobe pneumonia. She has been on IV Levaquin. We will follow the blood cultures, sputum cultures. Repeat chest x-ray shows some improvement in the left lower lobe density. We will follow with the official report. 2. Acute hypoxic respiratory failure: The patient continues to be hypoxic. We will try to wean down the oxygen. The patient might benefit from having a walking desaturation study to see if she would need any home oxygen to the [facility]. 3. Acute bronchitis: The patient was started on nebulizer treatment and IV methylprednisolone. We will decrease it to oral prednisone for now and we will closely follow. 4. Hypertension: Well controlled. Continue with current antihypertensive medications. 5. Hypokalemia: We will replace with oral potassium chloride. Recheck a basic metabolic panel in a.m. 6. Possible discharge in a.m. if she remains hemodynamically stable. [facility] /[id number]
[2017-08-29] MEDS: Terazosin 5 MG Cap PO SCH (20:33)
[2017-08-30] MEDS: Albuterol 0.083% 2.5 MG/3 ML Neb Soln NEB SCH ×2 (01:37→07:37)
[2017-08-30] MEDS: Omeprazole 20 MG Cap.CR PO SCH (06:07)
[2017-08-30 07:22] LABS: CHLORIDE,CL 105 mmol/L (101-111); SODIUM,NA 142 mmol/L (135-145)
[2017-08-30] MEDS ORDERED: predniSONE 20 MG Tab PO SCH (08:00)
[2017-08-30] MEDS: Potassium Chloride 10 MEQ Tab.ER PO SCH (08:41)
[2017-08-30] MEDS: Folic Acid 1 MG Tab PO SCH (08:41)
[2017-08-30] MEDS: Furosemide 20 MG Tab PO SCH (08:41)
[2017-08-30] MEDS: Heparin Sodium 5,000 Units/ML Vial SUBCUT SCH (08:41)
[2017-08-30] MEDS: Multivitamins,Therapeutic Tab PO SCH (08:42)
[2017-08-30 11:28] VITALS: BP 138/64
--- NOTE | 2017-08-30 12:16 | DISCH ---
ADMITTING DIAGNOSES: 1. Possible pneumonia. 2. Acute hypoxic respiratory failure. 3. Acute bronchitis. DISCHARGE DIAGNOSES: 1. Pneumonia, treated well with Levaquin. 2. Acute hypoxic respiratory failure, improved from the time of admission. 3. Acute bronchitis, resolved. 4. Hypertension. HISTORY OF PRESENT ILLNESS: Mrs. Karen Rothman is an 89-year-old female with medical history significant for hypertension and hyperlipidemia, admitted to the hospital with complaints of cough and hypoxia, noted to have left lower lobe pneumonia and received IV antibiotics. So far, her cultures remained negative. She was tested negative for influenza. She was continued on steroids and then later changed to oral prednisone at the time of discharge. She has continued on oral Levaquin as an outpatient. She required some nebulizers secondary to acute bronchitis. She remains hemodynamically stable for now. She continues to require oxygen. She has been on oxygen since June as needed at the correction. She is discharged home in stable condition. DISCHARGE MEDICATIONS: Include: 1. Tylenol 500 mg every 4 hours as needed for pain. 2. Tessalon Perles 100 mg 3 times a day as needed for cough. 3. Ferrous fumarate for iron-deficiency anemia. 4. Folic acid 1 mg daily. 5. Lasix 20 mg daily. 6. Levaquin 500 mg every 48 hours for 3 days. 7. Multivitamin 1 tablet daily. 8. Omeprazole 20 mg daily. 9. Potassium chloride 20 mEq twice a day. 10.Prednisone taper dose starting at 20 mg for 3 days and then followed by 10 mg for the next 3 days. 11.Terazosin 5 mg daily. 12.Robitussin 100 mg every 4 hours as needed for cough. PHYSICAL EXAMINATION: On the day of discharge: Vital Signs: Temperature of 97.1, pulse of 63, blood pressure of 138/64, respiratory rate of 20, and saturating at 92% on room air. General Appearance: The patient is well oriented to time, place, and person. Follows commands spontaneously. Cardiovascular System: S1 and S2 heard with normal intensity. No gallops. Respiratory System: Clear to auscultation bilaterally. No wheeze. No crepitations. Abdomen: Soft. Bowel sounds positive. Nontender. No rigidity. Extremities: No edema in the bilateral lower extremities. Neurology: No gross focal neurological deficit. CONDITION ON ADMISSION: Poor. CONDITION ON DISCHARGE: Stable. DISPOSITION: Discharged to assisted living. ACTIVITY: As tolerated. DIET: Cardiac healthy diet. FOLLOWUP: Follow up with primary care physician in the next one week. TIME SPENT: Spent over 35 minutes of time in evaluating and treating this patient and discharge planning. [facility] /[id number]
== END 2017-08-30 12:47 | disposition home or self-care (01) | DRG 193 ==
LOC: DL.ED 14:26 → DL.MS 19:25
PROVIDERS: ADMIT Hospitalist; ATTEND Hospitalist
DX: J18.9 Pneumonia, unspecified organism (principal); J96.01 Acute respiratory failure with hypoxia; I10 Essential (primary) hypertension; E78.1 Pure hyperglyceridemia; G89.29 Other chronic pain; Y95 Nosocomial condition; M54.9 Dorsalgia, unspecified; J20.9 Acute bronchitis, unspecified; M19.90 Unspecified osteoarthritis, unspecified site; H54.7 Unspecified visual loss; E78.00 Pure hypercholesterolemia, unspecified; E87.6 Hypokalemia; K57.90 Diverticulosis of intestine, part unspecified, without perforation or abscess without bleeding; Z87.891 Personal history of nicotine dependence; Z79.899 Other long term (current) drug therapy; Z90.49 Acquired absence of other specified parts of digestive tract; Z85.038 Personal history of other malignant neoplasm of large intestine; R06.2 Wheezing
CPT/HCPCS: 36415; 71046; 80048; 80053; 81001; 83605; 83880; 85025; 87040; 87804; 94640; 97161-GP; 97165-GO; 99284; 99285; A9270-GY; J1644; J1720; J1956; J2920; J7030; J7620-GY